=== PATIENT | female | born 1985 | race Caucasian/White ===

== ENCOUNTER 2025-07-04 13:25 | Emergency (ER) | payer OTHER, SELFPAY ==
[2025-07-04 13:29] VITALS: BP 135/92
[2025-07-04 14:00] VITALS: BP 128/87
[2025-07-04 14:40] VITALS: BMI 40.0
--- NOTE | 2025-07-04 14:58 | ED.GENMED ---
History of Present Illness
General
Chief Complaint: Abdominal Symptoms
Source: patient
Time Seen by Provider: 07/04/25 14:26
History of Present Illness
History of Present Illness:
39-year-old female presents complaining of drainage from her umbilicus. Patient has been experiencing some discomfort in her central abdomen for the past couple days. She noticed drainage from her umbilicus which she describes as very
foul-smelling. She went to an urgent care who referred her here. Patient has had previous abdominal surgeries including for C-sections and a hysterectomy. She does not believe any mesh was used in any of her surgeries. She denies any history of
a hernia. No nausea or vomiting. She is moving her bowels normally. Patient is being treated with Plaquenil and prednisone (she has not been very compliant with the medications) for a suspected autoimmune/rheumatoid disorder. She has not been
given a final diagnosis but they believe she has something similar to lupus or Sjogren's.
Past History
Past History
ED Past Medical History: Other (Possible lupus, rheumatoid arthritis, Sjogren's)
ED Past Surgical History:
Social History
Tobacco: Non-smoker
Drug: None
Personal:
Living: with family
Employment: Not employed
Family History
Family History: Other
Phy Exam
Physical Exam
Physical Exam:
General: Awake, Alert, Oriented X3. No acute distress.
Vitals: unremarkable
Head: Atraumatic
Eyes: Pupils equal, EOMI
Throat: Airway intact, no exudates
Neck: Trachea midline
Lungs: Clear and equal b/l
Heart: Regular rate, no murmurs
Abd: Soft, mildly distended tenderness noted about the umbilicus. The umbilicus itself is not erythematous. There is no drainage now but the patient states she just recently cleaned it, No pulsatile mass
Neuro: Nonfocal
Skin: Warm, dry, no rash
Extremities: pulses equal b/l, no edema
Course
Orders/Labs/Results
Orders:
Orders
07/04/25 14:52
CT Abd/pel W Iv And Oral Contr Urgent
Comment:
Reason For Exam: abd pain, umbilical drainage
Iohexol [Omnipaque] See Protocol PO NOW STA
07/04/25 15:26
Basic Metabolic Panel Urgent
Complete Blood Count/With Diff Urgent
Abnormal Lab Results
07/04/25
15:26
MCH 32.2 H pg
(27.0-31.0)
Absolute Monos (auto) 0.7 H 10^3/uL
(0.1-0.6)
07/04/25 15:26
07/04/25 15:26
Vital Signs
Initial and Last Documented VS:
Initial Vital Signs
Temp Pulse Resp BP Pulse Ox
97.9 F 87 18 135/92 100
07/04/25 13:29 07/04/25 13:29 07/04/25 13:29 07/04/25 13:29 07/04/25 13:29
Last Documented Vital Signs
Temp Pulse Resp BP Pulse Ox
98.1 F 71 16 117/78 99
07/04/25 14:00 07/04/25 16:26 07/04/25 16:26 07/04/25 16:26 07/04/25 16:26
MDM/Problems Addressed
Differential Diagnosis Includes:
Superficial infection, enterocutaneous fistula, dermatitis
MDM/Problems Addressed:
CT abdomen pelvis shows no acute abnormality other than significant amount of stool. Patient not really complaining of constipation. Will recommend oral antibiotics and topical antifungals.
*Radiology
Radiology exam reviewed: radiology read reviewed
*Pulse Oximetry
SaO2: 100
Oxygen Mode of Delivery: Room air
Patient hypoxic: no
*Critical Care Note
Total Time (30-74mins, 75-104mins- exclusive of procedures): Not Applicable
ED Attending Note
-
Portions of this chart may have been created with voice recognition software.� Occasional wrong word or��sound alike� substitutions may have occurred due to the inherent limitations of voice recognition software.
Discharge Plan
Departure
Patient Disposition: Home (Routine Discharge)
Date of Disposition: 07/04/25
Time of Disposition: 19:31
Patient with high blood pressure during this ER visit?: No
Condition: Good
Discharge Problem:
Umbilical discharge
Prescriptions:
New
cephalexin 500 mg capsule
500 mg PO BID 7 Days Qty: 14 0RF
No Action
lorazepam 0.5 mg tablet
0.5 mg PO DAILYPRN PRN (Reason: anxiety)
Patient Comments:
last filled 01/19/25 #15
ibuprofen 200 mg Tablet
600 mg PO DAILYPRN PRN (Reason: mild pain)
phentermine 37.5 mg capsule
37.5 mg PO DAILY
Patient Comments:
last filled 06/07/25 #30
Referrals:
Radha Morton CRNP [Family Provider, Family Practice]
Activity Restrictions/Additional Instructions:
Your CAT scan does not show any abnormality which would explain your bellybutton discharge. Will cover you with an antibiotic for a potential early skin infection. I would also use an [id number] antifungal like nystatin in case you are
developing a fungal infection in the bellybutton. Follow-up with your primary care provider
Interventions
Interventions:
*Risk Screen - Suicide Last Done: 07/04/25 13:31
*General Assessment Last Done: 07/04/25 13:31
*Neglect/Abuse Screening Last Done: 07/04/25 13:31
*ED- Fall Risk Assessment Last Done: 07/04/25 14:30
*ED COVID-19 Vaccine History Last Done: 07/04/25 14:30
*Nursing Disposition Last Done: 07/04/25 19:54
PX-Hujtep-Dwwnhnibsq Assessment Last Done: 07/04/25 14:30
Discharge Date and Time
Discharge Date/Time: 07/04/25 19:57
Print Language: PASHTO
[2025-07-04] MEDS: OMNIPAQUE 50 ML PO (15:24)
[2025-07-04 15:37] LABS: Hematocrit 39.9 % (37.0-47.0); Hemoglobin 13.8 g/dL (12.0-16.0); Mean Corp Hgb Conc. 34.6 g/dL (33.0-37.0); Mean Corpuscular Volume 93.0 fL (81.0-99.0); Nucleated Red Blood Cells % 0 %; Platelet Count 237 10^3/uL (130-400); Red Cell Dist. Width 11.9 % (11.5-14.5)
[2025-07-04 16:09] LABS: Blood Urea Nitrogen 12 mg/dl (7-17); Calcium 9.6 mg/dl (8.4-10.2); Carbon Dioxide 27 mmol/L (22-30); Chloride 106 mmol/L (98-107); Estimated Creatinine Clearance > 125 ml/min; Glucose 86 mg/dl (70-99); Potassium 4.2 mmol/L (3.5-5.1); Sodium 139 mmol/L (135-145); eGFR > 60.00
[2025-07-04 16:26] VITALS: BP 117/78
--- NOTE | 2025-07-04 19:48 | EDRN ---
Report received, Dr. Sullivan in to go over results and plan for discharge
== END 2025-07-04 19:57 | disposition home or self-care (01) ==
LOC: EMR 13:25
PROVIDERS: EMERGENCY PHYSICIAN Emergency Medicine; FAMILY PHYSICIAN Nurse Practitioner Family
DX: R10.9 Unspecified abdominal pain (principal); R14.0 Abdominal distension (gaseous)
CPT/HCPCS: 99284; 74177; 80048; 85025; Q9967